=== PATIENT | female | born 1980 | race Caucasian/White ===

== ENCOUNTER → 2016-11-06 | Outpatient (REF) | payer MEDICAID ==
[~2016-11-06] MED LIST: AC325T PO; ACHYD1T PO; BUPR300T43 PO; CEPH-331 PO; CITA20TA12 PO; CYCL-265 PO; HYDR-3702 PO; IBP200T PO; NF-DICLO50 PO; NORG1TAB7 PO; PRED10TA PO; PROM25TA5 PO; TRAZ100T92 PO
[2016-11-06 12:21] LABS: ALBUMIN 4.3 g/dL (3.4-5.0); ANION GAP 16.5 MEQ/L (3-15); CALCULATED IONIZED CALCIUM 3.9 mg/dL (3.8-4.6); TOTAL PROTEIN 7.7 g/dL (6.4-8.5)
== END ==
LOC: LAB 11:33
PROVIDERS: ATTEND Family Medicine
DX: N89.8 Other specified noninflammatory disorders of vagina (principal); K21.9 Gastro-esophageal reflux disease without esophagitis; E78.5 Hyperlipidemia, unspecified
CPT/HCPCS: 80053; 80061; 87210

== ENCOUNTER → 2016-11-09 | Outpatient (REF) | payer MEDICAID ==
[2016-11-09 17:02] LABS: GC-CHLAMYDIA SOURCE URINE
[2016-11-11 21:38] LABS: N.gonorrhoeae SOURCE URINE
== END ==
LOC: LAB 12:56
PROVIDERS: ATTEND Family Medicine
DX: Z11.3 Encounter for screening for infections with a predominantly sexual mode of transmission (principal)
CPT/HCPCS: 87491; 87591